=== PATIENT | male | born 1995 | race Caucasian/White ===

== ENCOUNTER 2020-09-22 14:01 | Emergency (ER) | payer SELFPAY ==
[2020-09-22] MEDS ORDERED: Acetaminophen 325 MG Tab PO ONE (15:40)
[2020-09-22] MEDS ORDERED: Ibuprofen 600 MG Tab PO ONE (15:40)
[2020-09-22] MEDS ORDERED: Dexamethasone 10 MG/ML SDV IM ONE (15:42)
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
[2020-09-22] MEDS ORDERED: Dexamethasone 4 MG Tab PO ONE (15:59)
[2020-09-22] MEDS ORDERED: Amoxicillin 500 MG Cap PO ONE (16:01)
== END 2020-09-22 16:07 | disposition home or self-care (01) ==
LOC: LB.ED 14:01 → SUPCPDRO 14:01 → LB.ED 16:07
DX: H66.92 Otitis media, unspecified, left ear (principal); J02.9 Acute pharyngitis, unspecified; Z20.828 Contact with and (suspected) exposure to other viral communicable diseases
CPT/HCPCS: 87635; 99283; A9270; J8540; U0002